=== PATIENT | male | born 1940 | race Caucasian/White ===

== ENCOUNTER 2020-03-24 12:49 | Observation (INO) ==
[2020-03-24 13:35] LABS: Basophils % 0.6 % (0.0-0.8); Eosinophils # 1.3 10*3/uL (0.0-0.87); Eosinophils % 18.3 % (0.00-10.9); Hematocrit 41.7 VOL% (42.0-52.0); Hemoglobin 13.9 GM/DL (14.0-18.0); Immature Granulocytes % 0.3 %; Immature Granulocytes Absolute 0.02 #; Lymphocytes # 1.4 10*3/uL (1.4-4.0); Lymphocytes % 19.6 % (21.2-54.2); Mean Corpuscular HGB Conc 33.3 GM/DL (32-36); Mean Corpuscular Volume 91.2 FL (87-102); Mean Platelet Volume 10.1 FL (9.6-12.0); Monocytes % 6.9 % (1.7-12.7); Neutrophils % 54.3 % (38.7-73.9); Platelet Count 178 T/CUMM (130-400); Red Blood Count 4.57 MC/CUMM (3.8-5.5); Red Cell Distribution Width 13.2 % (9.3-17.3); White Blood Count 7.1 T/CUMM (4-12)
[2020-03-24 13:59] LABS: Albumin 3.4 G/DL (3.4-5.0); Bilirubin,Total 0.6 MG/DL (0.2-1.0); Calcium 8.9 MG/DL (8.5-10.1); Osmolality,Calculated 288.4 MOS/KG (273-304); Total Protein 6.5 G/DL (6.4-8.3)
[2020-03-24] MEDS ORDERED: SODIUM CHLORIDE 0.9% 1,000 ML IV STA (14:00)
[2020-03-24 14:10] LABS: Eosinophils 18 % (0-10); Lymphocytes 20 % (20-55); Segmented Neutrophils 57 % (50-85); Total Cells Counted 100
[2020-03-24] MEDS ORDERED: GLUCAGON 1 MG VIAL IM PRN (14:34)
[2020-03-24] MEDS ORDERED: DEXTROSE 50% 25 GM/50 ML VIAL IV PRN (14:34)
[2020-03-24] MEDS ORDERED: ACETAMINOPHEN 325 MG TABLET PO PRN (14:34)
[2020-03-24] MEDS ORDERED: ONDANSETRON 4 MG/2 ML VIAL IV PRN (14:34)
[2020-03-24] MEDS ORDERED: POTASSIUM CHLORIDE 10 MEQ TABLET PO PRN (15:35)
[2020-03-24 17:16] LABS: Troponin I < 0.015 NG/ML (0.00-0.045)
[2020-03-24 19:23] LABS: Apearance,Urine CLEAR (Clear); Bilirubin,Urine Negative (Negative); Blood, Urine Large mg/dL (Negative); Glucose,Urine (UA) Negative (Negative); Hyaline Casts,Urine 14 /LPF (0-3); Ketones,Urine Negative (Negative); Mucus,Urine Occasional /LPF (Occasional); Nitrite,Urine Negative (Negative); Protein,Urine Negative; RBC,Urine 21 /HPF (0-4); Squamous Epithelial Cell,Urine Occasional /HPF (0-10); Urine Color Yellow (Yellow); Urine Specific Gravity 1.017 (1.001-1.035); Urine Urobilinogen < 2.0 EU/DL (0.2-1.0)
[2020-03-24 20:15] LABS: Troponin I < 0.015 NG/ML (0.00-0.045)
[2020-03-24] MEDS ORDERED: ATORVASTATIN 40 MG TABLET PO SCH (21:00)
[2020-03-25 05:47] LABS: Basophils % 0.5 % (0.0-0.8); Eosinophils # 1.2 10*3/uL (0.0-0.87); Eosinophils % 16.4 % (0.00-10.9); Hematocrit 40.3 VOL% (42.0-52.0); Hemoglobin 13.4 GM/DL (14.0-18.0); Immature Granulocytes % 0.4 %; Immature Granulocytes Absolute 0.03 #; Lymphocytes # 1.2 10*3/uL (1.4-4.0); Lymphocytes % 16.3 % (21.2-54.2); Mean Corpuscular HGB Conc 33.3 GM/DL (32-36); Mean Platelet Volume 10.4 FL (9.6-12.0); Monocytes % 9.1 % (1.7-12.7); Neutrophils % 57.3 % (38.7-73.9); Platelet Count 145 T/CUMM (130-400); Red Blood Count 4.48 MC/CUMM (3.8-5.5); Red Cell Distribution Width 13.1 % (9.3-17.3); White Blood Count 7.6 T/CUMM (4-12)
[2020-03-25 06:12] LABS: Calcium 9.1 MG/DL (8.5-10.1); Osmolality,Calculated 286.4 MOS/KG (273-304)
[2020-03-25 06:16] LABS: Eosinophils 18 % (0-10); Lymphocytes 18 % (20-55); Segmented Neutrophils 59 % (50-85); Total Cells Counted 100
[2020-03-25 06:17] LABS: Hypochromasia 1+; Ovalocytes Slight; Platelet Estimate Normal
[2020-03-25 08:09] VITALS: BP 107/64
[2020-03-25] MEDS ORDERED: SERTRALINE 100 MG TABLET PO SCH (09:00)
[2020-03-25] MEDS ORDERED: TAMSULOSIN 0.4 MG CAPSULE PO SCH (09:00)
[2020-03-25] MEDS ORDERED: PANTOPRAZOLE 40 MG TABLET PO SCH (09:00)
[2020-03-25] MEDS ORDERED: ASPIRIN EC 81 MG TABLET PO SCH (09:00)
== END 2020-03-25 12:37 | disposition home or self-care (01) ==
LOC: N.EDINP 12:49 → N.ED 12:49 → N.EDINP 16:20 → N.TELEN 16:31
PROVIDERS: ADMIT Internal Medicine; ATTEND Internal Medicine